=== PATIENT | female | born 1960 | race Caucasian/White ===

== ENCOUNTER 2017-05-05 13:42 | Outpatient (CLI) | END 2017-05-05 13:43 | disposition home or self-care (01) | LOC: CAR 13:42 | PROVIDERS: ATTEND Nurse Practitioner Family | DX: R00.2 Palpitations (principal); R53.83 Other fatigue | CPT/HCPCS: 93005; 93010 ==

== ENCOUNTER 2017-05-07 19:25 | Outpatient (CLI) | END 2017-05-07 19:26 | disposition home or self-care (01) | LOC: AMBL 19:25 | PROVIDERS: ATTEND Internal Medicine Geriatric Medicine ==